=== PATIENT | female | born 1990 | race Caucasian/White ===

== ENCOUNTER 2025-06-14 16:19 | Outpatient (CLI) | payer BC, SELFPAY ==
[2025-06-14 23:15] LABS: Chlamydia DNA Amplified* NOT DETECTED (No Detected); GC DNA Amplified* NOT DETECTED (No Detected)
== END 2025-06-14 16:20 | disposition home or self-care (01) ==
LOC: NFLDUCREF 16:26
PROVIDERS: Visit Provider Physician Assistant Surgical
DX: N89.8 Other specified noninflammatory disorders of vagina (principal); A74.9 Chlamydial infection, unspecified
CPT/HCPCS: 87491; 87591